=== PATIENT | female | born 2000 | race Hispanic/Latino ===

== ENCOUNTER 2022-04-28 10:08 | Emergency (ER) | payer MEDICAID ==
[~2022-04-28] VITALS: Ht 154.9 cm; Wt 117.9 kg
[2022-04-28] MEDS ORDERED: 0.9%NACL 1000ML 1,000 ML IV ONE (11:00)
[2022-04-28 11:28] LABS: BASOPHILS % (AUTO) 0.4 % (0.0-5.0); EOSINOPHILS % (AUTO) 0.7 % (0.0-8.0); HEMATOCRIT 40.2 % (36-48); LYMPHOCYTES % (AUTO) 21.9 % (21.0-51.0); MEAN CORPUSCULAR HEMOGLOBIN 29.8 pg (27.0-33.0); MEAN CORPUSCULAR HGB CONC 32.6 g/dL (32.0-36.0); MEAN CORPUSCULAR VOLUME 91.4 fL (79-99); MONOCYTES % (AUTO) 4.5 % (3.0-13.0); NEUTROPHILS % (AUTO) 72.1 % (40.0-77.0); PLATELET COUNT (AUTO) 334 K/uL (130-400); RED CELL DISTRIBUTION WIDTH 12.6 % (11.0-15.5); WHITE BLOOD COUNT (AUTO) 13.6 K/uL (4.8-10.8)
[2022-04-28 11:31] LABS: CREATININE 0.7 mg/dL (0.5-1.5); POTASSIUM 4.2 mmol/L (3.5-5.1)
[2022-04-28 11:36] LABS: ALBUMIN 3.7 g/dL (3.5-5.0); TOTAL PROTEIN, SERUM 7.6 g/dL (6.0-8.3)
[2022-04-28 12:25] LABS: APPEARANCE,URINE CLEAR (CLEAR); BILIRUBIN,URINE NEGATIVE (NEGATIVE); COLOR,URINE LIGHT-YELLOW (YELLOW); GLUCOSE, URINE (UA) NEGATIVE (NEGATIVE); HCG,QUALITATIVE URINE POSITIVE (NEGATIVE); KETONES,URINE NEGATIVE (NEGATIVE); LEUKOCYTE ESTERASE ,URINE NEGATIVE Leu/uL (NEGATIVE); NITRATE,URINE NEGATIVE (NEGATIVE); OCCULT BLOOD,URINE SMALL (NEGATIVE); PROTEIN,URINE NEGATIVE (NEGATIVE); UROBILINOGEN,URINE 0.2 mg/dL (0.2-1.0)
[2022-04-28 12:39] LABS: BACTERIA,URINE RARE /HPF (None Seen); SQUAMOUS EPITHELIAL CELL,UR RARE /HPF (0-2)
[2022-04-28] MEDS ORDERED: CEPH500B PO (13:14)
[2022-04-28] MEDS ORDERED: DOXY1TAB8 PO (13:14)
[2022-04-28] MEDS ORDERED: ONDANSETRON 4MG INJ ONE (13:14)
[2022-04-28 13:24] VITALS: BP 133/69
== END 2022-04-28 13:41 | disposition home or self-care (01) ==
LOC: EDH 10:08
DX: O99.611 Diseases of the digestive system complicating pregnancy, first trimester (principal); K52.9 Noninfective gastroenteritis and colitis, unspecified; O99.891 Other specified diseases and conditions complicating pregnancy; N89.8 Other specified noninflammatory disorders of vagina; Z3A.01 Less than 8 weeks gestation of pregnancy
CPT/HCPCS: 99284; 96374; 96361; 80053; 84703; 85025; 87797; 87486; 81001; 81025; 36415; 76817; J7030; J2405

== ENCOUNTER 2022-09-28 18:21 | Observation (INO) | payer MEDICAID ==
[~2022-09-28] VITALS: Ht 154.9 cm; Wt 137.0 kg
[~2022-09-28 18:21] MED LIST: ACET-66 PO; CEPH500B PO; DOXY1TAB8 PO; ONDA4TAB10 PO
[2022-09-28 18:27] VITALS: BP 127/73
[2022-09-28 20:15] LABS: APPEARANCE,URINE CLEAR (CLEAR); BILIRUBIN,URINE NEGATIVE (NEGATIVE); COLOR,URINE YELLOW (YELLOW); GLUCOSE, URINE (UA) 70 mg/dL (NEGATIVE); KETONES,URINE NEGATIVE (NEGATIVE); LEUKOCYTE ESTERASE ,URINE 75 Leu/uL (NEGATIVE); NITRATE,URINE NEGATIVE (NEGATIVE); OCCULT BLOOD,URINE NEGATIVE (NEGATIVE); PH,URINE 6.5 (5.0-8.0); PROTEIN,URINE 30 mg/dL (NEGATIVE)
[2022-09-28 20:23] LABS: AMPHET/METH SCREEN,URINE NEGATIVE (NEGATIVE); BARBITURATE SCREEN, URINE NEGATIVE (NEGATIVE); BENZODIAZEPINES SCREEN,URINE NEGATIVE (NEGATIVE); CANNABINOID SCREEN,URINE NEGATIVE (NEGATIVE); COCAINE SCREEN,URINE NEGATIVE (NEGATIVE); OPIATE SCREEN,URINE NEGATIVE (NEGATIVE); PHENCYCLIDINE SCREEN,URINE NEGATIVE (NEGATIVE)
[2022-09-28 20:28] LABS: BACTERIA,URINE MOD /HPF (None Seen); MUCUS,URINE RARE LPF (None Seen); SQUAMOUS EPITHELIAL CELL,UR FEW /HPF (0-2)
[2022-09-28] MEDS: LACTATED RINGERS 1000ML 1,000 ML IV SCH (22:32)
[2022-09-29] MEDS: LACTATED RINGERS 1000ML 1,000 ML IV SCH (06:08)
== END 2022-09-29 07:53 | disposition home or self-care (01) ==
LOC: EDH 18:21 → LDH 18:22 → INTOOBSV 18:22 → OBSVTOIN 18:22
PROVIDERS: ADMIT Obstetrics & Gynecology; ATTEND Obstetrics & Gynecology
DX: O30.003 Twin pregnancy, unspecified number of placenta and unspecified number of amniotic sacs, third trimester (principal); O36.8130 Decreased fetal movements, third trimester, not applicable or unspecified; Z3A.29 29 weeks gestation of pregnancy; Z79.899 Other long term (current) drug therapy
CPT/HCPCS: 59025; 96360; 80305; 87088; 81001; 76819; 96361; G0378 ×12; J7120 ×2

== ENCOUNTER 2022-10-31 21:20 | Observation (INO) | payer MEDICAID ==
[~2022-10-31] VITALS: Ht 154.9 cm; Wt 142.9 kg
[2022-10-31 21:24] VITALS: BP 146/88
[2022-10-31] MEDS ORDERED: FERR-82 PO (21:47)
[2022-10-31 22:00] LABS: APPEARANCE,URINE CLEAR (CLEAR); BILIRUBIN,URINE NEGATIVE (NEGATIVE); COLOR,URINE LIGHT-YELLOW (YELLOW); GLUCOSE, URINE (UA) NEGATIVE (NEGATIVE); KETONES,URINE NEGATIVE (NEGATIVE); LEUKOCYTE ESTERASE ,URINE 75 Leu/uL (NEGATIVE); NITRATE,URINE NEGATIVE (NEGATIVE); OCCULT BLOOD,URINE NEGATIVE (NEGATIVE); PH,URINE 6.5 (5.0-8.0); PROTEIN,URINE NEGATIVE (NEGATIVE); UROBILINOGEN,URINE 0.2 mg/dL (0.2-1.0)
[2022-10-31] MEDS: LACTATED RINGERS 1000ML IV SCH ×2 (22:58→23:36)
[2022-10-31 23:01] LABS: BACTERIA,URINE MOD /HPF (None Seen); SQUAMOUS EPITHELIAL CELL,UR RARE /HPF (0-2)
[2022-11-01] MEDS ORDERED: ACETAMINOPHEN 500 MG TABLET PO ONE (03:00)
[2022-11-01] MEDS: LACTATED RINGERS 1000ML IV SCH ×2 (06:56→18:09)
[2022-11-01 07:15] LABS: HEMATOCRIT 29.3 % (36-48); MEAN CORPUSCULAR HEMOGLOBIN 27.5 pg (27.0-33.0); MEAN CORPUSCULAR HGB CONC 31.1 g/dL (32.0-36.0); MEAN CORPUSCULAR VOLUME 88.5 fL (79-99); NUCLEATED RED BLOOD CELLS 0.2 % (0.0-0.19); RED BLOOD CELL COUNT(AUTO) 3.31 MIL/uL (4.00-5.50); RED CELL DISTRIBUTION WIDTH 13.2 % (11.0-15.5); WHITE BLOOD COUNT (AUTO) 10.7 K/uL (4.8-10.8)
[2022-11-01] MEDS ORDERED: MAGNESIUM 4GM PREMIX 100ML 100 ML IV SCH (07:30)
[2022-11-01] MEDS ORDERED: CALCIUM GLUC 1GM/10ML VIAL IV PRN (07:30)
[2022-11-01] MEDS: CELESTONE SOLUSPAN 6 MG/ML 5ML VIAL IM SCH (08:49)
[2022-11-01] MEDS: MAGNESIUM SULFATE 40GM/1000ML 1,000 ML IV PRN (08:54)
[2022-11-01 14:47] LABS: AMPHET/METH SCREEN,URINE NEGATIVE (NEGATIVE); BARBITURATE SCREEN, URINE NEGATIVE (NEGATIVE); BENZODIAZEPINES SCREEN,URINE NEGATIVE (NEGATIVE); CANNABINOID SCREEN,URINE NEGATIVE (NEGATIVE); COCAINE SCREEN,URINE NEGATIVE (NEGATIVE); OPIATE SCREEN,URINE NEGATIVE (NEGATIVE); PHENCYCLIDINE SCREEN,URINE NEGATIVE (NEGATIVE)
[2022-11-01] MEDS ORDERED: ACETAMINOPHEN 325 MG TAB PO PRN (18:00)
[2022-11-02] MEDS: MAGNESIUM SULFATE 40GM/1000ML 1,000 ML IV PRN (04:31)
[2022-11-02] MEDS: LACTATED RINGERS 1000ML IV SCH (06:19)
[2022-11-02] MEDS: CELESTONE SOLUSPAN 6 MG/ML 5ML VIAL IM SCH (07:58)
[2022-11-03 08:40] LABS: RAPID PLASMA REAGIN NONREACTIVE (NONREACTIVE)
== END 2022-11-02 10:25 | disposition home or self-care (01) ==
LOC: EDH 21:20 → LDH 21:42 → INTOOBSV 21:42 → OBSVTOIN 21:42 → LDH 11-01 00:23
PROVIDERS: ADMIT Obstetrics & Gynecology; ATTEND Obstetrics & Gynecology
DX: O47.03 False labor before 37 completed weeks of gestation, third trimester (principal); O30.003 Twin pregnancy, unspecified number of placenta and unspecified number of amniotic sacs, third trimester; O99.213 Obesity complicating pregnancy, third trimester; E66.01 Morbid (severe) obesity due to excess calories; Z3A.34 34 weeks gestation of pregnancy
CPT/HCPCS: 96361 ×3; 86592; 80305; 85027; 86850; 86900; 86901; 87088; 87340; 86701; 87390; 36415; 81001; 96366 ×2; 96365; 76805; 76810; 96372 ×2; J7120 ×4; J0702; J3475 ×2; A4314; G0378; A4600; 96360

== ENCOUNTER 2024-04-17 12:10 | Emergency (ER) | payer SELFPAY ==
[~2024-04-17] VITALS: Ht 154.9 cm; Wt 123.8 kg
[~2024-04-17 12:10] MED LIST changes: +FERR-82 PO; +ONDA-243 PO; -ONDA4TAB10 PO
[2024-04-17 13:09] LABS: BASOPHILS # (AUTO) 0.05 K/uL (0.00-0.20); BASOPHILS % (AUTO) 0.4 % (0.0-5.0); EOSINOPHILS % (AUTO) 1.7 % (0.0-8.0); HEMATOCRIT 43.4 % (36-48); IMMATURE GRANULOCYTE ABSOLUTE 0.02 K/uL (0-1); LYMPHOCYTES # (AUTO) 3.3 K/uL (1.0-4.8); LYMPHOCYTES % (AUTO) 27.6 % (21.0-51.0); MEAN CORPUSCULAR HEMOGLOBIN 29.5 pg (27.0-33.0); MEAN CORPUSCULAR HGB CONC 31.6 g/dL (32.0-36.0); MEAN CORPUSCULAR VOLUME 93.3 fL (79-99); MONOCYTES # (AUTO) 0.8 K/uL (0.1-1.0); MONOCYTES % (AUTO) 6.7 % (3.0-13.0); NEUTROPHILS # (AUTO) 7.5 K/uL (1.8-7.7); NEUTROPHILS % (AUTO) 63.4 % (40.0-77.0); PLATELET COUNT (AUTO) 329 K/uL (130-400); RED BLOOD CELL COUNT(AUTO) 4.65 MIL/uL (4.00-5.50); RED CELL DISTRIBUTION WIDTH 14.1 % (11.0-15.5); WHITE BLOOD COUNT (AUTO) 11.9 K/uL (4.8-10.8)
[2024-04-17 13:19] LABS: CREATININE 0.7 mg/dL (0.5-1.0); POTASSIUM 4.2 mmol/L (3.5-5.1)
--- NOTE | 2024-04-17 14:02 | HMCIMG ---
US OB <14 WEEKS REASON: Vaginal bleed COMPARISON: None TECHNIQUE: Transvaginal pelvic sonogram was performed. FINDINGS: Uterus is 8.1 x 3.6 x 5.0 cm. Endometrium is 4 mm. There is no evidence of an intrauterine gestational sac. There is no endometrial or myometrial mass or fluid collection. Both ovaries appear normal. There are no adnexal masses. There is no free fluid in the cul-de-sac. IMPRESSION: 1. Normal pelvic sonogram, no intrauterine gestation identified. 2. This is a nonspecific finding, early less than 5 week gestation can cause this appearance as can spontaneous miscarriage.
--- NOTE | 2024-04-17 14:02 | ERN ---
General Chief Complaint: Vaginal Bleeding Stated Complaint: VAGINAL BLEEDING IN Time Seen by MD: 12:18 Time Seen by Midlevel: 12:18 Source: patient History of Present Illness Initial Comments 23-year-old female presents to the ED due to vaginal bleeding. Patient reports to currently be but unknown how many weeks gestation. A0. Patient states her last menstrual cycle was from 04/03/24 - 04/08/24. Patient initiated bleeding on 04/11/2024 and had a positive test at home. Seen at [facility] ED on 04/14/2024 discharge home with confirmed . Patient reports vaginal bleeding has worsened and she initiated with dysuria. Denies significant past medical history. Allergies: Coded Allergies: No Known Allergies (Unverified Allergy, Unknown, 08/25/22) No Known Drug Allergies (Unverified Allergy, Unknown, 04/28/22) Home Meds Active Scripts Acetaminophen (Tylenol) 500 Mg Tab, 500 MG PO Q4PRN PRN for FEVER, #30 TAB Prov:DURAN GARCIA [facility] 05/12/22 Cephalexin Monohydrate (Keflex) 500 Mg Cap, 500 MG PO QID for 7 Days, #28 CAP Prov:DURAN GARCIAP 05/12/22 Ondansetron (Ondansetron Odt) 4 Mg Tab.rapdis, 4 MG PO TID, #10 TAB Prov:DURAN GARCIA [facility] 05/04/22 Cephalexin Monohydrate (Keflex) 500 Mg Cap, 500 MG PO QID for 7 Days, #28 CAP Prov:DURAN GARCIA [facility] 05/04/22 Doxylamine Succinate/Vit B6 (Doxylamine-Pyridoxine 10-10 mg) 1 Each Tablet.dr, 1 EACH PO bedtime PRN for nausea for 10 Days, #15 TAB Prov:DISHA DUVALL MD 04/28/22 Cephalexin Monohydrate (Keflex) 500 Mg Cap, 500 MG PO TID for 7 Days, #21 CAP Prov:DISHA DUVALL MD 04/28/22 Ondansetron (Ondansetron Odt) 4 Mg Tab.rapdis, 4 MG PO TID for NAUSEA, #20 TAB Prov:ALFONZO CRAWFORD MD 04/19/22 Doxylamine Succinate/Vit B6 (Doxylamine-Pyridoxine 10-10 mg) 1 Each Tablet.dr, 1 EACH PO AD, #30 TAB Prov:ALFONZO CRAWFORD MD 04/19/22 Acetaminophen (Acetaminophen) 500 Mg Tablet, 1000 MG PO QID, #50 TAB Prov:ALFONZO CRAWFORD MD 04/19/22 Reported Medications Ferrous Sulfate (Iron) 325 Mg Tablet, 325 MG PO DAILY, TAB 10/31/22 Past Medical History Past Medical History: No Pertinent History Past Surgical History: Tonsillectomy, None, Social History Social History: Negative Female( History) LMP: Apr 03, 2024 : 2 Para: 2 Aborts: 0 Results Laboratory and Microbiology Lab and Micro Result Laboratory Tests Test 04/17/24 13:00 04/17/24 16:10 White Blood Count 11.9 K/uL (4.8-10.8) H Red Blood Count 4.65 MIL/uL (4.00-5.50) Hemoglobin 13.7 g/dL (12.0-16.0) Hematocrit 43.4 % (36-48) Mean Corpuscular Volume 93.3 fL (79-99) Mean Corpuscular Hemoglobin 29.5 pg (27.0-33.0) Mean Corpuscular Hemoglobin Concent 31.6 g/dL (32.0-36.0) L Red Cell Distribution Width 14.1 % (11.0-15.5) Platelet Count 329 K/uL (130-400) Mean Platelet Volume 9.4 fL (7.5-10.5) Immature Granulocyte % (Auto) 0.2 % (0-1) Neutrophils (%) (Auto) 63.4 % (40.0-77.0) Lymphocytes (%) (Auto) 27.6 % (21.0-51.0) Monocytes (%) (Auto) 6.7 % (3.0-13.0) Eosinophils (%) (Auto) 1.7 % (0.0-8.0) Basophils (%) (Auto) 0.4 % (0.0-5.0) Neutrophils # (Auto) 7.5 K/uL (1.8-7.7) Lymphocytes # (Auto) 3.3 K/uL (1.0-4.8) Monocytes # (Auto) 0.8 K/uL (0.1-1.0) Eosinophils # (Auto) 0.20 K/uL (0.00-0.70) Basophils # (Auto) 0.05 K/uL (0.00-0.20) Absolute Immature Granulocyte (auto 0.02 K/uL (0-1) Nucleated Red Blood Cells 0.0 % (0.0-0.19) Sodium Level 141 mmol/L (136-145) Potassium Level 4.2 mmol/L (3.5-5.1) Chloride Level 107 mmol/L (101-111) Carbon Dioxide Level 30 mmol/L (21-32) Blood Urea Nitrogen 13 mg/dL (7-18) Creatinine 0.7 mg/dL (0.5-1.0) Glomerular Filtration Rate Calc 124 mL/min (>90) Random Glucose 88 mg/dL (70-105) Total Calcium 9.0 mg/dL (8.5-10.1) Human Chorionic Gonadotropin, Quant 32 mIU/mL (0-5) H Urine Color LIGHT-BROWN (YELLOW) Urine Appearance CLOUDY (CLEAR) H Urine pH 6.0 (5.0-8.0) Urine Specific [place] 1.018 (1.001-1.031) Urine Protein 10 mg/dL (NEGATIVE) H Urine Glucose (UA) NEGATIVE mg/dL (NEGATIVE) Urine Ketones 5 mg/dL (NEGATIVE) H Urine Occult Blood LARGE (NEGATIVE) H Urine Nitrate NEGATIVE (NEGATIVE) Urine Bilirubin NEGATIVE mg/dL (NEGATIVE) Urine Urobilinogen 0.2 mg/dL (0.2-1.0) Urine Leukocyte Esterase 75 Malaika/uL (NEGATIVE) H Urine RBC TNTC /HPF (0-1) H Urine WBC 26-50 /HPF (0-1) H Urine Squamous Epithelial Cells FEW /HPF (0-2) Urine Other Crystals (Auto) 1 /HPF (None Seen) Urine Bacteria RARE /HPF (None Seen) ED Course Orders Procedure Category Date Status Time Cbc With Differential LAB 04/17/24 Complete 12: Basic Metabolic Panel LAB 04/17/24 Complete 12: Urinalysis LAB 04/17/24 Complete W/Microscopic 12: Hcg,Quantitative LAB 04/17/24 Complete 12: Us Ob <14 Weeks US 04/17/24 Resulted 12: Culture Urine WILLIS 04/17/24 In Process 16:28 Ceftriaxone 1g Vial PHA 04/17/24 In Process (Rocephine 1g Inj) 17:00 Current Medications Medications (Trade) Dose Ordered Sig/Shawanda Route PRN Reason Start Time Stop Time Status Last Admin Dose Admin Ceftriaxone Sodium (ROCEphine 1G INJ) 1 gm ONCE ONCE IVPB 04/17/24 17:00 04/17/24 17:01 Vital Signs Date Time Temp Pulse Resp B/P (MAP) Pulse Ox O2 Delivery O2 Flow Rate FiO2 04/17/24 15:15 98.4 89 16 120/76 97 Room Air* 0 21 04/17/24 12:13 98.4 89 16 120/76 97 Room Air 0 DX & DISP Disposition: Discharge Departure Impression: Primary Impression: UTI (urinary tract infection) Additional Impressions: Threatened , Miscarriage Condition: Stable Scripts Cephalexin (Cephalexin) 500 Mg Tablet 500 MG PO BID for 7 Days, #14 TAB Prov: SHIRLEY MERCADO 04/17/24 Additional Instructions: Discharge home. Rest. Follow up with primary care in 24 hours. Return to the ER for any acute changes or worsening symptoms. If any medications were prescribed take as directed. Okay to continue home medications unless otherwise discussed during your visit in the emergency room today. Patient was also advised to follow-up with primary care physician in 1 to 2 days for continued monitoring. Referrals: BRYANT CHRISTIANSON PET TRAINER (PCP) I participated in the following activities of this patient's care: For this patient encounter, I reviewed the PA or PET TRAINER documentation, treatment plan, and medical decision making. I did not have [id number] time with this patient. I will sign as the reviewing DrBear And agree with the treatment plan and disposition. SHIRLEY MERCADO Apr 17, 2024 14:02
[2024-04-17 15:15] VITALS: BP 120/76; PULSE 89; RESP 16; TEMP 98.4; O2SAT 97
[2024-04-17 16:27] LABS: APPEARANCE,URINE CLOUDY (CLEAR); BILIRUBIN,URINE NEGATIVE (NEGATIVE); COLOR,URINE LIGHT-BROWN (YELLOW); GLUCOSE, URINE (UA) NEGATIVE (NEGATIVE); KETONES,URINE 5 mg/dL (NEGATIVE); LEUKOCYTE ESTERASE ,URINE 75 Leu/uL (NEGATIVE); NITRATE,URINE NEGATIVE (NEGATIVE); OCCULT BLOOD,URINE LARGE (NEGATIVE); PROTEIN,URINE 10 mg/dL (NEGATIVE); UROBILINOGEN,URINE 0.2 mg/dL (0.2-1.0)
[2024-04-17 16:33] LABS: BACTERIA,URINE RARE /HPF (None Seen); MUCUS,URINE RARE LPF (None Seen); RBC,URINE TNTC /HPF (0-1); SQUAMOUS EPITHELIAL CELL,UR FEW /HPF (0-2); UNCLASSIFIED CRYSTAL 1 /HPF (None Seen); WBC,URINE 26-50 /HPF (0-1)
[2024-04-17] MEDS ORDERED: CEPH500T PO (16:47)
[2024-04-17] MEDS: cefTRIAXone 1G VIAL IVPB ONE (16:54)
== END 2024-04-17 17:01 | disposition home or self-care (01) ==
LOC: EDH 12:10
DX: O23.41 Unspecified infection of urinary tract in pregnancy, first trimester (principal); N39.0 Urinary tract infection, site not specified; O20.0 Threatened abortion; Z3A.01 Less than 8 weeks gestation of pregnancy; Z90.89 Acquired absence of other organs
CPT/HCPCS: 99285; 96374; 76801; 80048; 84702; 85025; 87086; 81001; 36415; J0696